=== PATIENT | female | born 1960 | race Caucasian/White ===

== ENCOUNTER 2016-04-14 06:55 | Observation (INO) | payer BC ==
[~2016-04-14] VITALS: Ht 172.7 cm; Wt 64.0 kg
[2016-04-14 07:01] VITALS: BP 134/70; PULSE 62; RESP 15; TEMP 97.8; O2SAT 99
[2016-04-14 07:13] VITALS: O2SAT 100
--- NOTE | 2016-04-14 07:37 | PD ---
HPI Chief Complaint: Chest Pain Time Seen by Provider: 07:34 Travel History International Travel<30 days: No Contact w/Intl Traveler<30days: No Traveled to known affect area: No History of Present Illness HPI 55-year-old female with history of no significant past medical issues, presents to the ER today with left lower chest pain and left flank pains that started on its own overnight, she states it is a 4 out of 10 currently, possibly worse with movement. She denies any nausea, vomiting, coughing, shortness of breath, or any other symptoms. She states that she also feels some left arm tingling which she states is better now. Modifying Factors: Possibly worse with movement Associated Signs & Symptoms: Left chest and flank pain Risk Factors: None PFSH Past Medical History Medical History: Denies Significant Hx Diminished Hearing: No Past Surgical History Surgical History: No Previous Surgery Social History Alcohol Use: Yes (occ) Tobacco Use: No Substance Use: No Allergies-Medications (Allergen,Severity, Reaction): Coded Allergies: No Known Allergies (Unverified , 04/14/16) Reported Meds & Prescriptions Reported Meds & Active Scripts Active No Active Prescriptions or Reported Medications Review of Systems Except as stated in HPI: all other systems reviewed are Neg Physical Exam Narrative GENERAL: Pleasant middle age white female patient in no acute distress. Awake and oriented 3. SKIN: Warm and dry. HEAD: Atraumatic. Normocephalic. EYES: Pupils equal and round. No scleral icterus. No injection or drainage. ENT: No nasal bleeding or discharge. Mucous membranes pink and moist. NECK: Trachea midline. No JVD. CARDIOVASCULAR: Regular rate and rhythm. No murmur appreciated. Pulses are present and equal bilaterally. RESPIRATORY: No accessory muscle use. Clear to auscultation. Breath sounds equal bilaterally. GASTROINTESTINAL: Abdomen soft, non-tender, nondistended. Hepatic and splenic margins not palpable. MUSCULOSKELETAL: No obvious deformities. No clubbing. No cyanosis. No edema. NEUROLOGICAL: Awake and alert. No obvious cranial nerve deficits. Motor grossly within normal limits. Normal speech. PSYCHIATRIC: Appropriate mood and affect; insight and judgment normal. Data Data Last Documented VS Vital Signs Date Time Temp Pulse Resp B/P Pulse Ox O2 Delivery O2 Flow Rate FiO2 04/14/16 07:01 97.8 62 15 134/70 99 Orders Electrocardiogram (04/14/16 ) Ckmb (Isoenzyme) Profile (04/14/16 07:34) Complete Blood Count With Diff (04/14/16 07:34) Comprehensive Metabolic Panel (04/14/16 07:34) D-Dimer (04/14/16 07:34) Magnesium (Mg) (04/14/16 07:34) Prothrombin Time / Inr (Pt) (04/14/16 07:34) Act Partial Throm Time (Ptt) (04/14/16 07:34) Troponin I (04/14/16 07:34) Lipase (04/14/16 07:34) Chest, Single Ap (04/14/16 07:34) Ecg Monitoring (04/14/16 07:34) Bilateral Bp Monitoring (04/14/16 07:34) Iv Access Insert/Monitor (04/14/16 07:34) Oximetry (04/14/16 07:34) Oxygen Administration (04/14/16 07:34) Sodium Chloride 0.9% Flush (Ns Flush) (04/14/16 07:45) Labs Laboratory Tests Test 04/14/16 07:35 White Blood Count 4.6 TH/MM3 Red Blood Count 4.88 MIL/MM3 Hemoglobin 14.7 GM/DL Hematocrit 42.4 % Mean Corpuscular Volume 87.0 FL Mean Corpuscular Hemoglobin 30.2 PG Mean Corpuscular Hemoglobin 34.7 % Concent Red Cell Distribution Width 12.6 % Platelet Count 226 TH/MM3 Mean Platelet Volume 9.0 FL Neutrophils (%) (Auto) 56.3 % Lymphocytes (%) (Auto) 30.7 % Monocytes (%) (Auto) 8.7 % Eosinophils (%) (Auto) 3.2 % Basophils (%) (Auto) 1.1 % Neutrophils # (Auto) 2.6 TH/MM3 Lymphocytes # (Auto) 1.4 TH/MM3 Monocytes # (Auto) 0.4 TH/MM3 Eosinophils # (Auto) 0.1 TH/MM3 Basophils # (Auto) 0.0 TH/MM3 CBC Comment DIFF FINAL Differential Comment Prothrombin Time 10.9 SEC Prothromb Time International 1.0 RATIO Ratio Activated Partial 26.6 SEC Thromboplast Time D-Dimer Quantitative (PE/DVT) LESS THAN 0.19 MG/L FEU Sodium Level 141 MEQ/L Potassium Level 3.9 MEQ/L Chloride Level 105 MEQ/L Carbon Dioxide Level 28.3 MEQ/L Anion Gap 8 MEQ/L Blood Urea Nitrogen 16 MG/DL Creatinine 0.84 MG/DL Estimat Glomerular Filtration 70 ML/MIN Rate Random Glucose 96 MG/DL Calcium Level 8.5 MG/DL Magnesium Level 1.9 MG/DL Total Bilirubin 0.4 MG/DL Aspartate Amino Transf 15 U/L (AST/SGOT) Alanine Aminotransferase 20 U/L (ALT/SGPT) Alkaline Phosphatase 58 U/L Total Creatine Kinase 97 U/L Troponin I LESS THAN 0.02 NG/ML Total Protein 7.2 GM/DL Albumin 3.9 GM/DL Lipase 227 U/L MDM Medical Decision Making Medical Screen Exam Complete: Yes Emergency Medical Condition: Yes Medical Record Reviewed: Yes Interpretation(s) EKG shows NSR, no ST elevation or depression, and no arrhythmias. No significant T-wave inversions. Laboratory Tests Test 04/14/16 07:35 Monocytes (%) (Auto) 8.7 % (0.0-8.0) Estimat Glomerular Filtration 70 ML/MIN (>89) Rate Troponin I LESS THAN 0.02 NG/ML (0.02-0.05) Last 24 hours Impressions Chest X-Ray 04/14/16 0734 Signed Impressions: Service Date/Time: Thursday, April 14, 2016 07:34 - CONCLUSION: No acute cardiopulmonary abnormality is identified. Lauro Rowan MD Differential Diagnosis Left chest and left flank painsACS versus pneumonia versus costochondritis versus pancreatitis Narrative Course EKG did not show any signs of significant dysrhythmias or ST changes. Cardiac enzymes are negative. Chest x-ray did not indicate any significant acute pulmonary processes. At this point, I am worried about her left-sided chest pain and patient was given aspirin. My plan would be to admit her for chest pain center evaluation. Diagnosis Primary Impression: CHEST PAIN, UNSPECIFIED Admitting Information Admitting Physician Requests: Admit Scripts No Active Prescriptions or Reported Meds Declan Arredondo MD Apr 14, 2016 07:37
[2016-04-14] MEDS ORDERED: SODIUM CHLORIDE 0.9% FLUSH 5 ML FLUSH IVF PRN (07:45)
[2016-04-14 07:49] LABS: AUTOMATED NEUTROPHIL # 2.6 TH/MM3 (1.8-7.7); BASOPHIL % 1.1 % (0.0-2.0); EOSINOPHIL # 0.1 TH/MM3 (0-0.4); EOSINOPHIL % 3.2 % (0.0-4.0); HEMATOCRIT 42.4 % (35.0-46.0); HEMO FLAGS DIFF FINAL; LYMPH % 30.7 % (9.0-44.0); LYMPHOCYTE # 1.4 TH/MM3 (1.0-4.8); MEAN CORPUSCULAR HEMOGLOBIN 30.2 PG (27.0-34.0); MEAN CORPUSCULAR HGB CONC 34.7 % (32.0-36.0); MONO % 8.7 % (0.0-8.0); NEUT % 56.3 % (16.0-70.0); PLATELET COUNT 226 TH/MM3 (150-450); RED BLOOD COUNT 4.88 MIL/MM3 (4.00-5.30); RED CELL DISTRIBUTION WIDTH 12.6 % (11.6-17.2); WHITE BLOOD COUNT 4.6 TH/MM3 (4.0-11.0)
--- NOTE | 2016-04-14 08:04 | RADRPT ---
EXAM DATE/TIME: 04/14/2016 07:34 [facility] COMPARISON: No previous studies available for comparison. INDICATIONS : Pain in left lower chest woke patient at 6am this morning, no shortness of breath, no history of hear t or lung problems, nonsmoker MEDICAL HISTORY : None. SURGICAL HISTORY : None. ENCOUNTER: Initial ACUITY: 1 day PAIN SCORE: 9/10 LOCATION: Left chest FINDINGS: Portable AP view of the chest demonstrates a normal-sized cardiac silhouette. No effusion, consolidat ion, or pneumothorax is visualized. The bones and soft tissues demonstrate no acute abnormality. CONCLUSION: No acute cardiopulmonary abnormality is identified. Lauro Rowan MD on April 14, 2016 at 8:02 Board Certified Radiologist. This report was verified electronically.
[2016-04-14 08:07] LABS: ANION GAP 8 MEQ/L (5-15); BICARBONATE 28.3 MEQ/L (21.0-32.0); BLOOD UREA NITROGEN 16 MG/DL (7-18); CHLORIDE 105 MEQ/L (98-107); GLOMERULAR FILTRATION RATE 70 ML/MIN (>89); MAGNESIUM 1.9 MG/DL (1.5-2.5); POTASSIUM 3.9 MEQ/L (3.5-5.1); SODIUM (NA) 141 MEQ/L (136-145)
[2016-04-14 08:08] LABS: APTT (PATIENT) 26.6 SEC (24.3-30.1); PROTHROMBIN TIME - PATIENT 10.9 SEC (9.8-11.6)
[2016-04-14 08:11] LABS: ALKALINE PHOSPHATASE 58 U/L (45-117); ALT (GPT) 20 U/L (10-53); AST (GOT) 15 U/L (15-37); TOTAL BILIRUBIN ADULT 0.4 MG/DL (0.2-1.0)
[2016-04-14 08:18] LABS: CREATINE KINASE 97 U/L (26-192)
[2016-04-14] MEDS ORDERED: ASPIRIN 325 MG TAB PO ONE (08:30)
[2016-04-14 09:26] VITALS: O2SAT 99
[2016-04-14 09:34] VITALS: BP 118/63; PULSE 58; RESP 24; O2SAT 99
[2016-04-14] MEDS ORDERED: ONDANSETRON HCL 4 MG/2 ML VIAL IV PRN (10:00)
[2016-04-14] MEDS ORDERED: NITROGLYCERIN 0.4 MG SL 25 TABS/BTL SL PRN (10:00)
[2016-04-14] MEDS ORDERED: ACETAMINOPHEN 500 MG CPLT PO PRN (10:00)
--- NOTE | 2016-04-14 10:32 | HHI.HP ---
HPI Primary Care Physician Non-Staff Chief Complaint Left lower chest pain and left flank pain History of Present Illness 55-year-old patient with no significant past medical history. Upon awakening at 6 AM she noticed left lower chest and left flank pain that radiated to her back, no associated symptoms, no known precipitating or relieving factors. On way to ER she experience left arm discomfort, difficult for her to describe. Arm discomfort was not pain, numbness, tingling, or heavy but more "achy." Left arm discomfort resolved. She has never had pain like this in the past. She is on vacation here with her sister. She has a home in [place]. States she has had an "easy week, walking on the beach, and relaxing." No recent trauma to area. Endorses taking a deep breath and particular movements make pain worse. Review of Systems General: No fatigue,weakness, fever, chills, recent illness, or change in appetite HEENT: No MCHUGH, no vision changes, no nasal congestion or drainage, no dysphasia CV: No CP, pressure, palpitations, intermittent leg pain, dizziness RESP: No SOB, cough, wheeze, hemoptysis, asthma GI: No nausea or vomiting, bowel changes, diarrhea, constipation, pain, distention, melena, blood in the stool. No change in appetite, no unintentional weight gain or weight loss : No dysuria, urgency, frequency, hematuria, or history of kidney stones EXT: No lower leg edema, no paraesthesias MS: As stated above. No change in ROS. NEURO: No change in memory, dizziness, difficulty with balance, LOC, motor/ sensory deficits PSYCH: No anxiety or depression SKIN: No rashes, no concerning lesions Past Family Social History Allergies: Coded Allergies: No Known Allergies (Unverified , 04/14/16) Past Medical History None Past Surgical History None Reported Medications Active No Active Prescriptions or Reported Medications No [id number] supplements or herbals. Active Ordered Medications Current Medications Medications (Trade) Dose Ordered Sig/[place] Route Start Time Stop Time Status Last Admin (Tylenol) 500 mg Q4H PRN PO 04/14/16 10:00 (Zofran Inj) 4 mg Q6H PRN IV 04/14/16 10:00 (Nitrostat Sl) 0.4 mg Q5M PRN SL 04/14/16 10:00 (Aspirin) 325 mg DAILY PO 04/15/16 09:00 (Toradol Inj) 30 mg ONCE ONCE IV PUSH 04/14/16 10:15 04/14/16 10:16 UNV Family History Next contributory for early onset cardiovascular disease Social History No known diabetes, hyperlipidemia, or hypertension. Lifelong nonsmoker no alcohol or illegal drug use. Past cardiac testing Exercise stress test in 2011unremarkable 2016 echocardiogram. She was told was normal. She is not sure why primary care provider ordered echocardiogram. Physical Exam Vital Signs Vital Signs Date Time Temp Pulse Resp B/P Pulse Ox O2 Delivery O2 Flow Rate FiO2 04/14/16 09:34 58 24 118/63 99 Room Air 04/14/16 09:26 99 21 04/14/16 07:01 97.8 62 15 134/70 99 Physical Exam GENERAL: Alert WN, WD, NAD, pleasant, female appears younger than stated age HEAD: NC, AT EYES: Sclera clear, conjunctiva without injection, pupils equal and round NECK: Supple, no masses, trachea midline CV: RRR, without murmur, rub, gallop, no JVD, S1-S2 no S3-S4. No carotid bruits RESP: Clear lungs throughout bilateral, no crackles, wheeze, rhonchi, symmetrical chest rise, nonlabored, able to speak in full sentences ABD: Soft, flat, NT, ND, no masses, positive bowel tones BACK: No CVAT, no scoliosis EXT: Pulses +24, no dependent edema MS: Normal tone 4 extremities, nontender, no obvious deformities, full range of motion NEURO: CN II through CN XII grossly intact, motor strength 5/5, gait WNL PSYCH: A+O 3, pleasant affect, appropriate speech, appropriate mood and affect , insight and judgment SKIN: Normal turgor, normal texture, no lesions, no rashes, brisk cap refill, even hair distribution Laboratory Laboratory Tests Test 04/14/16 07:35 White Blood Count 4.6 Red Blood Count 4.88 Hemoglobin 14.7 Hematocrit 42.4 Mean Corpuscular Volume 87.0 Mean Corpuscular Hemoglobin 30.2 Mean Corpuscular Hemoglobin 34.7 Concent Red Cell Distribution Width 12.6 Platelet Count 226 Mean Platelet Volume 9.0 Neutrophils (%) (Auto) 56.3 Lymphocytes (%) (Auto) 30.7 Monocytes (%) (Auto) 8.7 Eosinophils (%) (Auto) 3.2 Basophils (%) (Auto) 1.1 Neutrophils # (Auto) 2.6 Lymphocytes # (Auto) 1.4 Monocytes # (Auto) 0.4 Eosinophils # (Auto) 0.1 Basophils # (Auto) 0.0 CBC Comment DIFF FINAL Differential Comment Prothrombin Time 10.9 Prothromb Time International 1.0 Ratio Activated Partial 26.6 Thromboplast Time D-Dimer Quantitative (PE/DVT) LESS THAN 0.19 Sodium Level 141 Potassium Level 3.9 Chloride Level 105 Carbon Dioxide Level 28.3 Anion Gap 8 Blood Urea Nitrogen 16 Creatinine 0.84 Estimat Glomerular Filtration 70 Rate Random Glucose 96 Calcium Level 8.5 Magnesium Level 1.9 Total Bilirubin 0.4 Aspartate Amino Transf 15 (AST/SGOT) Alanine Aminotransferase 20 (ALT/SGPT) Alkaline Phosphatase 58 Total Creatine Kinase 97 Troponin I LESS THAN 0.02 Total Protein 7.2 Albumin 3.9 Lipase 227 Result Diagram: 04/14/16 0735 04/14/16 0735 Imaging Last Impressions Chest X-Ray 04/14/1634 Signed Impressions: Service Date/Time: Thursday, April 14, 2016 07:34 - CONCLUSION: No acute cardiopulmonary abnormality is identified. Lauro Rowan MD Course EKGs First EKG showed normal sinus rhythm, normal axis, no ST or T-segment changes Assessment and Plan Assessment and Plan [facility] We complete 3 sets of EKGs and cardiac enzymes and be evaluate Dr. Leroy Alvarez. Further disposition to follow. Patient is agreeable to any further cardiac testing if required, including a stress test. #2 Musculoskeletal painToradol 30 mg x1 dose. 12:30- Seen and evaluated by Dr. Alvarez. No further cardiac testing required. Chest pain clearly musculoskeletal. No stress testing, follow with PCP. Instruction on use of Toradol for total of 6 doses discussed in length with patient. Patient agreeable to plan of care. Henrietta Ferrsi Apr 14, 2016 10:32
[2016-04-14] MEDS ORDERED: KETOROLAC TROMETHAMINE 30 MG/ML (IVP) VIAL IV PUSH ONE (11:00)
[2016-04-14 11:55] LABS: CREATINE KINASE 83 U/L (26-192)
[2016-04-14 13:47] LABS: BLOOD, URINE NEG (NEG); COMMENT (UR) CULT NOT INDICATED; CULTURE IF INDICATED CULT NOT INDICATED; GLUCOSE,URINE NEG (NEG); KETONE, URINE NEG (NEG); NITRITE,URINE NEG (NEG); PH, URINE 7.5 (5.0-8.5); RENAL EPITHELIAL CELLS <1 /hpf; SQUAMOUS EPITHELIAL CELL URINE 3 /hpf (0-5); TRANSITIONAL EPI CELLS, URINE <1 /hpf; URINE COLOR YELLOW (YELLW/STRAW)
[2016-04-14] MEDS ORDERED: KETO10 PO (14:04)
--- NOTE | 2016-04-14 14:04 | HHI.DCPOC ---
Discharge Care Plan Diagnosis: (1) Musculoskeletal chest pain Goals to Promote Your Health * To prevent worsening of your condition and complications * To maintain your health at the optimal level Directions to Meet Your Goals Take your medications as prescribed Follow your dietary instruction Follow activity as directed Keep your appointments as scheduled Take your immunizations and boosters as scheduled If your symptoms worsen call your PCP, if no PCP go to Urgent Care Center or Emergency Room Smoking is Dangerous to Your Health. Avoid second hand smoke Call the 24-hour hour crisis hotline for domestic abuse at Henrietta Ferris Apr 14, 2016 14:04
[2016-04-14 14:08] VITALS: BP 98/58; PULSE 60; RESP 18; O2SAT 95
--- NOTE | 2016-04-14 14:27 | EKG ---
Date Performed: 04/14/2016 Time Performed: 07:16:23 PTAGE: 55 years EKG: Sinus rhythm BORDERLINE LEFT AXIS DEVIATION LOW QRS VOLTAGE IN EXTREMITY LEADS BORDERLINE ECG NO PREVIOUS TRACING DOCTOR: Leroy Alvarez Interpretating Date/Time 04/14/2016 14:26:30
--- NOTE | 2016-04-14 14:33 | EKG ---
Date Performed: 04/14/2016 Time Performed: 11:06:05 PTAGE: 55 years EKG: SINUS BRADYCARDIA LOW QRS VOLTAGE IN EXTREMITY LEADS BORDERLINE ECG PREVIOUS TRACING : 04/14/2016 07.16 Since previous tracing, no significant change noted DOCTOR: Leroy Alvarez Interpretating Date/Time 04/14/2016 14:32:21
[2016-04-14] MEDS ORDERED: SODIUM CHLORIDE 0.9% FLUSH 5 ML FLUSH IVF SCH (21:00)
[2016-04-15] MEDS ORDERED: ASPIRIN 325 MG TAB PO SCH (09:00)
== END 2016-04-14 14:50 | disposition home or self-care (01) ==
LOC: NEPE 06:55 → NEDA 08:22 → UNDOADMOB 08:22 → NEDA 12:52 → NEPHCDU 12:52 → UNDODISOB 14:50
DX: R07.9 Chest pain, unspecified (principal); M79.1 Myalgia
CPT/HCPCS: 71010; 80053; 81001; 82550; 83690; 83735; 84484; 85025; 85379; 85610; 85730; 93005; G0378; J1885

== ENCOUNTER 2016-04-15 06:34 | Observation (INO) | payer BC ==
[~2016-04-15 06:34] MED LIST: KETO10 PO
[2016-04-15 06:37] VITALS: BP 155/73; PULSE 65; RESP 14; TEMP 97.9; O2SAT 98
[2016-04-15] MEDS ORDERED: SODIUM CHLORIDE 0.9% FLUSH 5 ML FLUSH IVF PRN (07:30)
[2016-04-15 07:34] VITALS: O2SAT 97
--- NOTE | 2016-04-15 07:38 | PD ---
HPI Chief Complaint: Chest Pain Time Seen by Provider: 07:23 Travel History International Travel<30 days: No Contact w/Intl Traveler<30days: No Traveled to known affect area: No History of Present Illness HPI 55-year-old female with previous history of high cholesterol, currently improved with lifestyle modifications, presents to the ER today after having been seen and admitted for chest pain yesterday, comes back complaining of left- sided chest and left arm pains which she currently rates at a 3 out of 10, constant but worsens at times on its own. She denies any exacerbating or alleviating factors. She states it is constant when she is not doing anything. She states that she had called her heavy equipment rental manager in [place] after leaving the hospital for chest pain center and was told to come back for further evaluation of chest pain. There was no stress testing done during the admission. She denies any shortness of breath, nausea, vomiting, fevers, coughing, or any other symptoms. Modifying Factors: None Associated Signs & Symptoms: Left-sided chest pain and left arm pain Risk Factors: None PFSH Past Medical History Blood Disorders: No Cancer: No Cardiovascular Problems: No Diminished Hearing: No Endocrine: No Gastrointestinal Disorders: Yes (ULCER IN PAST, ESOPHAGUS ) Genitourinary: No Immune Disorder: No Implanted Vascular Access Dvce: No Neurologic: No Psychiatric: No Reproductive: Yes (C-SECTIONS) Respiratory: No Past Surgical History Other Surgery: Yes (ABD LAPROSCOPES, BREAST REDUCTION, , BREAT BIOPSIES,LUMPECTOMY) Social History Alcohol Use: Yes (occ) Tobacco Use: No Substance Use: No Allergies-Medications (Allergen,Severity, Reaction): Coded Allergies: No Known Allergies (Unverified , 04/15/16) Reported Meds & Prescriptions Reported Meds & Active Scripts Active Ketorolac (Ketorolac Tromethamine) 10 Mg Tab 10 Mg PO TID Review of Systems Except as stated in HPI: all other systems reviewed are Neg Physical Exam Narrative GENERAL: Middle age pleasant white female who is well-developed, awake, alert, oriented 3, not in acute distress. SKIN: Warm and dry. HEAD: Atraumatic. Normocephalic. EYES: Pupils equal and round. No scleral icterus. No injection or drainage. ENT: No nasal bleeding or discharge. Mucous membranes pink and moist. NECK: Trachea midline. No JVD. CARDIOVASCULAR: Regular rate and rhythm. No murmur appreciated. Pulses are present and equal bilaterally. RESPIRATORY: No accessory muscle use. Clear to auscultation. Breath sounds equal bilaterally. GASTROINTESTINAL: Abdomen soft, non-tender, nondistended. Hepatic and splenic margins not palpable. MUSCULOSKELETAL: No obvious deformities. No clubbing. No cyanosis. No edema. NEUROLOGICAL: Awake and alert. No obvious cranial nerve deficits. Motor grossly within normal limits. Normal speech. PSYCHIATRIC: Appropriate mood and affect; insight and judgment normal. Data Data Last Documented VS Vital Signs Date Time Temp Pulse Resp B/P Pulse Ox O2 Delivery O2 Flow Rate FiO2 04/15/16 07:35 79 18 97 2 04/15/16 07:34 Nasal Cannula 04/15/16 06:37 97.9 155/73 Orders Electrocardiogram (04/15/16 07:23) Basic Metabolic Panel (Bmp) (04/15/16 07:23) Ckmb (Isoenzyme) Profile (04/15/16 07:23) Complete Blood Count With Diff (04/15/16 07:23) Magnesium (Mg) (04/15/16 07:23) Prothrombin Time / Inr (Pt) (04/15/16 07:23) Act Partial Throm Time (Ptt) (04/15/16 07:23) Troponin I (04/15/16 07:23) Ecg Monitoring (04/15/16 07:23) Bilateral Bp Monitoring (04/15/16 07:23) Iv Access Insert/Monitor (04/15/16 07:23) Oximetry (04/15/16 07:23) Oxygen Administration (04/15/16 07:23) Sodium Chloride 0.9% Flush (Ns Flush) (04/15/16 07:30) Cta Thor Abd Aorta W Iv C W3d (04/15/16 07:23) Iohexol 350 Inj (Omnipaque 350 Inj) (04/15/16 09:00) Labs Laboratory Tests Test 04/15/16 07:45 White Blood Count 4.6 TH/MM3 Red Blood Count 4.40 MIL/MM3 Hemoglobin 13.2 GM/DL Hematocrit 38.9 % Mean Corpuscular Volume 88.5 FL Mean Corpuscular Hemoglobin 30.1 PG Mean Corpuscular Hemoglobin 34.0 % Concent Red Cell Distribution Width 12.9 % Platelet Count 214 TH/MM3 Mean Platelet Volume 9.0 FL Neutrophils (%) (Auto) 67.7 % Lymphocytes (%) (Auto) 23.6 % Monocytes (%) (Auto) 5.7 % Eosinophils (%) (Auto) 2.2 % Basophils (%) (Auto) 0.8 % Neutrophils # (Auto) 3.1 TH/MM3 Lymphocytes # (Auto) 1.1 TH/MM3 Monocytes # (Auto) 0.3 TH/MM3 Eosinophils # (Auto) 0.1 TH/MM3 Basophils # (Auto) 0.0 TH/MM3 CBC Comment DIFF FINAL Differential Comment Prothrombin Time 10.9 SEC Prothromb Time International 1.0 RATIO Ratio Activated Partial 26.6 SEC Thromboplast Time Sodium Level 143 MEQ/L Potassium Level 3.7 MEQ/L Chloride Level 108 MEQ/L Carbon Dioxide Level 28.3 MEQ/L Anion Gap 7 MEQ/L Blood Urea Nitrogen 20 MG/DL Creatinine 0.76 MG/DL Estimat Glomerular Filtration 78 ML/MIN Rate Random Glucose 93 MG/DL Calcium Level 8.7 MG/DL Magnesium Level 1.9 MG/DL Total Creatine Kinase 71 U/L Troponin I LESS THAN 0.02 NG/ML MDM Medical Decision Making Medical Screen Exam Complete: Yes Emergency Medical Condition: Yes Medical Record Reviewed: Yes Interpretation(s) EKG shows sinus bradycardia rate 54 bpm with no signs of acute ST-T changes. Laboratory Tests Test 04/15/16 07:45 Chloride Level 108 MEQ/L (98-107) Blood Urea Nitrogen 20 MG/DL (7-18) Estimat Glomerular Filtration 78 ML/MIN (>89) Rate Troponin I LESS THAN 0.02 NG/ML (0.02-0.05) Differential Diagnosis Left-sided chest pain with radiation to the left armmusculoskeletal versus CAD versus aortic dissection Narrative Course Cardiac enzymes are still negative. EKG did not show any signs of ST changes. Her CTA was done which did not show any signs of acute aortic issues or pulmonary processes or other acute processes. At this point, case is discussed with PA for Dr. Alvarez and they have agreed to admit the patient for further chest pains evaluation. Diagnosis Primary Impression: Chest pain Admitting Information Admitting Physician Requests: Admit Declan Arredondo MD Apr 15, 2016 07:38
[2016-04-15 07:58] LABS: AUTOMATED NEUTROPHIL # 3.1 TH/MM3 (1.8-7.7); BASOPHIL % 0.8 % (0.0-2.0); EOSINOPHIL # 0.1 TH/MM3 (0-0.4); EOSINOPHIL % 2.2 % (0.0-4.0); HEMATOCRIT 38.9 % (35.0-46.0); HEMO FLAGS DIFF FINAL; LYMPH % 23.6 % (9.0-44.0); LYMPHOCYTE # 1.1 TH/MM3 (1.0-4.8); MEAN CELL VOLUME 88.5 FL (80.0-100.0); MEAN CORPUSCULAR HEMOGLOBIN 30.1 PG (27.0-34.0); MONO % 5.7 % (0.0-8.0); NEUT % 67.7 % (16.0-70.0); PLATELET COUNT 214 TH/MM3 (150-450); RED CELL DISTRIBUTION WIDTH 12.9 % (11.6-17.2); WHITE BLOOD COUNT 4.6 TH/MM3 (4.0-11.0)
[2016-04-15 08:06] LABS: APTT (PATIENT) 26.6 SEC (24.3-30.1); PROTHROMBIN TIME - PATIENT 10.9 SEC (9.8-11.6)
[2016-04-15 08:14] LABS: ANION GAP 7 MEQ/L (5-15); BICARBONATE 28.3 MEQ/L (21.0-32.0); BLOOD UREA NITROGEN 20 MG/DL (7-18); CHLORIDE 108 MEQ/L (98-107); GLOMERULAR FILTRATION RATE 78 ML/MIN (>89); MAGNESIUM 1.9 MG/DL (1.5-2.5); POTASSIUM 3.7 MEQ/L (3.5-5.1); SODIUM (NA) 143 MEQ/L (136-145)
[2016-04-15 08:22] LABS: CREATINE KINASE 71 U/L (26-192)
[2016-04-15] MEDS ORDERED: IOHEXOL 350 MG/ML 10 ML VIAL (for RAD DIAG) IV ONE (09:00)
--- NOTE | 2016-04-15 09:16 | RADRPT ---
EXAM DATE/TIME: 04/15/2016 08:29 [facility] COMPARISON: No previous studies available for comparison. INDICATIONS : Chest pain with left arm and jaw pain; evaluate for aortic dissection. IV CONTRAST: 75 cc Omnipaque 350 (iohexol) IV RADIATION DOSE: 5.16 CTDIvol (mGy) MEDICAL HISTORY : Esophageal ulcers, degenerative disc disease. SURGICAL HISTORY : section. ENCOUNTER: Initial ACUITY: 1 day PAIN SCALE: 5/10 LOCATION: Left chest TECHNIQUE: Volumetric scanning was performed using a multi-row detector CT scanner. The data was post processed with a variety of visualization algorithms including full volume maximum intensity projection, multi -planar sliding thin slab reformation, curved planar reformation, and surface rendering techniques. Using automated exposure control and adjustment of the mA and/or kV according to patient size, radiat ion dose was kept as low as reasonably achievable to obtain optimal diagnostic quality images. FINDINGS: LUNGS: There is no consolidation or pneumothorax. No concerning pulmonary nodule is visualized. No pleural fluid is present. MEDIASTINUM: No abnormally enlarged lymph nodes by CT criteria. No axillary or hilar abnormalities are identified. ABDOMEN: There are several hypodensities in the liver measuring up to 1.3 cm. There is a 1.3 cm The spleen is free of focal defects. The gallbladder and pancreas demonstrate no abnormality. The adrenal glands a re normal. There is a horseshoe kidney. There is a 5.5 cm left renal cyst. No hydronephrosis is seen. No free fluid or abdominal masses are identified. No para-aortic adenopathy is seen. PELVIS: No evidence of free fluid or pelvic mass. No abnormally enlarged inguinal or retroperitoneal lymph no john are present. The bladder is unremarkable. There is degenerative change in the lower lumbar spine. THORACIC AORTA: The thoracic aortic root is normal with normal branching of the great vessels. There is no evidence of aneurysm or dissection. ABDOMINAL AORTA: The aorta is normal in caliber without aneurysm or dissection. The renal arteries are patent bilater ally. The proximal celiac and superior mesenteric arteries are patent and normal in diameter. PELVIC VESSELS: The internal iliac and external iliac vessels are patent without aneurysm or stenosis. CONCLUSION: 1. The arterial system is within normal limits. Significant stenosis is not seen. 2. Horseshoe kidney 3. Hypodensities in the liver likely related to cysts or hemangiomas. Lauro Rivers MD on April 15, 2016 at 9:07 Board Certified Radiologist. This report was verified electronically.
[2016-04-15] MEDS ORDERED: ONDANSETRON HCL 4 MG/2 ML VIAL IV PRN (10:00)
[2016-04-15] MEDS ORDERED: ACETAMINOPHEN 500 MG CPLT PO PRN (10:00)
[2016-04-15] MEDS ORDERED: NITROGLYCERIN 0.4 MG SL 25 TABS/BTL SL PRN (10:00)
--- NOTE | 2016-04-15 10:02 | HHI.HP ---
HPI Primary Care Physician Non-Staff Chief Complaint Left lower chest and left arm pain History of Present Illness 55-year-old patient with no significant past medical history presents to the emergency room for further evaluation of chest discomfort. Patient was discharged yesterday after evaluation the chest pain center and seen by [employer] supervisor Dr. Alvarez. Discharge with musculoskeletal pain, given prescription of Toradol by mouth. Throughout evening she continued to have left lower chest discomfort relieved "somewhat but not completely" with Toradol. Was able to fall asleep however awoken at 4 AM with left lower chest discomfort. She called her primary care provider in [facility] at that time and PCP recommended to return to ER. Neighbor brought her to ER. Pain has never gone a way since yesterday, however relieved somewhat with Toradol. Left lower chest discomfort made worse with deep breath in particular movements. Palpitation does not make pain worse. No associated symptoms. No known precipitating factors. Duration has been constant. Severity 04/14. Radiation to her back and occasionally her left arm feels "achy." Endorses she is very anxious as she is normally a healthy person and never goes to hospitals. She is visiting from [place]. Review of Systems General: No fatigue,weakness, fever HEENT: No MCHUGH CV: As stated above. No palpitations or dizziness RESP: No SOB or cough GI: No nausea, vomiting, bowel changes, diarrhea : No dysuria, urgency, frequency, hematuria MS: As stated above no change in ROM NEURO: No change syncopal episodes PSYCH: No anxiety or depression Past Family Social History Allergies: Coded Allergies: No Known Allergies (Unverified , 04/15/16) Past Medical History None. No known diabetes, hyperlipidemia, or hypertension. Past Surgical History None Reported Medications Reported Meds & Active Scripts Active Ketorolac (Ketorolac Tromethamine) 10 Mg Tab 10 Mg PO TID x 6 doses-ordered on discharge 04/14/16 No other prescription medications, [id number], or herbal supplements. Active Ordered Medications Current Medications Medications (Trade) Dose Ordered Sig/Benton Route Start Time Stop Time Status Last Admin (Tylenol) 500 mg Q4H PRN PO 04/15/16 10:00 UNV (Zofran Inj) 4 mg Q6H PRN IV 04/15/16 10:00 UNV (Nitrostat Sl) 0.4 mg Q5M PRN SL 04/15/16 10:00 UNV (Aspirin) 325 mg DAILY PO 04/16/16 09:00 UNV Family History Noncontributory for early onset cardiovascular disease Social History Lifelong nonsmoker. No alcohol or illegal drugs. Visiting from [place]. , 2 grown children. No known diabetes, hypertension, or hyperlipidemia. States years ago she took medication for cholesterol however has been off for many years by the direction of her PCP. 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 Physical Exam Vital Signs Vital Signs Date Time Temp Pulse Resp B/P Pulse Ox O2 Delivery O2 Flow Rate FiO2 04/15/16 07:35 79 18 97 2 04/15/16 07:34 97 Nasal Cannula 2 04/15/16 07:34 97 Nasal Cannula 2 04/15/16 06:37 97.9 65 14 155/73 98 Room Air Physical Exam GENERAL: Alert WN, WD, NAD, pleasant, female HEAD: NC, AT EYES: Sclera clear CV: RRR, without murmur, rub, gallop, no JVD, S1-S2 no S3-S4. Nontender upon palpation to left lower chest. RESP: Clear lungs throughout bilateral, no crackles, wheeze, rhonchi, symmetrical chest rise, nonlabored, able to speak in full sentences EXT: Pulses +24, no dependent edema MS: Normal tone 4 extremities, nontender, no obvious deformities, full range of motion NEURO: CN II through CN XII grossly intact, motor strength 5/5, gait WNL PSYCH: A+O 3, pleasant affect, appropriate speech, appropriate mood and affect , insight and judgment, mildly anxious SKIN: Normal turgor, normal texture Laboratory Laboratory Tests Test 04/15/16 07:45 White Blood Count 4.6 Red Blood Count 4.40 Hemoglobin 13.2 Hematocrit 38.9 Mean Corpuscular Volume 88.5 Mean Corpuscular Hemoglobin 30.1 Mean Corpuscular Hemoglobin 34.0 Concent Red Cell Distribution Width 12.9 Platelet Count 214 Mean Platelet Volume 9.0 Neutrophils (%) (Auto) 67.7 Lymphocytes (%) (Auto) 23.6 Monocytes (%) (Auto) 5.7 Eosinophils (%) (Auto) 2.2 Basophils (%) (Auto) 0.8 Neutrophils # (Auto) 3.1 Lymphocytes # (Auto) 1.1 Monocytes # (Auto) 0.3 Eosinophils # (Auto) 0.1 Basophils # (Auto) 0.0 CBC Comment DIFF FINAL Differential Comment Prothrombin Time 10.9 Prothromb Time International 1.0 Ratio Activated Partial 26.6 Thromboplast Time Sodium Level 143 Potassium Level 3.7 Chloride Level 108 Carbon Dioxide Level 28.3 Anion Gap 7 Blood Urea Nitrogen 20 Creatinine 0.76 Estimat Glomerular Filtration 78 Rate Random Glucose 93 Calcium Level 8.7 Magnesium Level 1.9 Total Creatine Kinase 71 Troponin I LESS THAN 0.02 Result Diagram: 04/15/1645 04/15/16 0745 Imaging Aorta CTAno acute findings Current Medications Medications (Trade) Dose Ordered Sig/Benton Route Start Time Stop Time Status Last Admin (Tylenol) 500 mg Q4H PRN PO 04/15/16 10:00 UNV (Zofran Inj) 4 mg Q6H PRN IV 04/15/16 10:00 UNV (Nitrostat Sl) 0.4 mg Q5M PRN SL 04/15/16 10:00 UNV (Aspirin) 325 mg DAILY PO 04/16/16 09:00 UNV Course EKG First EKG shows normal sinus rhythm with no ST or T-segment changes Assessment and Plan Assessment and Plan #1 Chest pain-Admitted to chest pain center. Will order an exercise stress test to reassure patient. Chest discomfort clearly musculoskeletal in nature, however due to to patient's anxiety and return to ER will order a stress test. Patient is agreeable to this plan a care and appreciate further testing. She will again be seen and evaluated by Dr. Leroy Alvarez. Naturally, if stress test is negative for ischemia she will be discharged and follow with PCP once she returns home next week. Patient reassured aorta CTA of chest had no acute findings nor did additional lab work and EKG. #2 Musculoskeletal painstates she is able to walk on treadmill despite musculoskeletal discomfort. Declines need for additional pain medication or Toradol before exam. Henrietta Ferris Apr 15, 2016 10:02
[2016-04-15 10:52] VITALS: BP 125/69; PULSE 60; RESP 18; O2SAT 97
[2016-04-15 11:49] VITALS: BP 101/66; PULSE 64; RESP 16; TEMP 96.9; O2SAT 97
[2016-04-15 12:00] VITALS: PULSE 60
--- NOTE | 2016-04-15 12:09 | TR ---
Date Performed: 04/15/2016 Time Performed: 11:04:39 DOCTOR: Leroy Alvarez DRUG LIST: CLINICAL HISTORY: REASON FOR TEST: REASON FOR ENDING: OBSERVATION: CONCLUSION: Geogre protocol completed. Stopped sec to reaching target heart rate and leg fatigue. Maximum CZ=077 Target HR Achieved=86.0% Maximum SU=983/78 Total Exercise Time=7:07. No reprod chest discomfort, states pain improved with exercise. No st t seg changes to sugg ischemia. No ectopy. Good exercise tolerance. Normal bp response. Recovery quick and unremarkable. COMMENTS: Conclusion: Normal treadmill exercise. No evidence of ischemia.
--- NOTE | 2016-04-15 12:40 | HHI.DCPOC ---
Discharge Care Plan Diagnosis: (1) Musculoskeletal chest pain Goals to Promote Your Health * To prevent worsening of your condition and complications * To maintain your health at the optimal level Directions to Meet Your Goals Take your medications as prescribed Follow your dietary instruction Follow activity as directed Keep your appointments as scheduled Take your immunizations and boosters as scheduled If your symptoms worsen call your PCP, if no PCP go to Urgent Care Center or Emergency Room Smoking is Dangerous to Your Health. Avoid second hand smoke Call the 24-hour hour crisis hotline for domestic abuse at Henrietta Ferris Apr 15, 2016 12:40
--- NOTE | 2016-04-15 14:27 | EKG ---
Date Performed: 04/15/2016 Time Performed: 06:53:19 PTAGE: 55 years EKG: SINUS BRADYCARDIA WITHIN NORMAL LIMITS Compared to the PREVIOUS TRACING , QRS voltage slightly larger in the limb leads, otherwise no significan t change PREVIOUS TRACIN04/14/2016 11.06 DOCTOR: Leroy Alvarez Interpretating Date/Time 04/15/2016 14:25:14
[2016-04-15] MEDS ORDERED: SODIUM CHLORIDE 0.9% FLUSH 5 ML FLUSH IVF SCH (21:00)
[2016-04-16] MEDS ORDERED: ASPIRIN 325 MG TAB PO SCH (09:00)
== END 2016-04-15 13:36 | disposition home or self-care (01) ==
LOC: NEPC 06:34 → NEDA 09:37 → NEPHCDU 11:22
DX: R07.89 Other chest pain (principal); E78.5 Hyperlipidemia, unspecified; M79.1 Myalgia
CPT/HCPCS: 71275; 74174; 80048; 82550; 83735; 84484; 85025; 85610; 85730; 93005; 93017; 99285; G0378; Q9967